=== PATIENT | female | born 1965 | race Caucasian/White ===

== ENCOUNTER 2024-11-01 10:30 | Outpatient (REF) | payer BC, SELFPAY ==
[2024-11-01 11:44] LABS: Hemoglobin 13.3 g/dl (12.0-16.0); Mean Corpuscular HGB Conc 33.3 g/dl (31.0-35.0); Mean Corpuscular Hemoglobin 30.2 pg (27.0-33.0); Mean Corpuscular Volume 90.9 fL (80.0-98.0); Mean Platelet Volume 10.7 fL (9.4-12.3); Platelet Count 215 X10*3/uL (160-400); Red Cell Distribution Width 13.5 % (11.0-16.0); White Blood Count 3.6 X10*3/uL (4.8-10.8)
[2024-11-01 12:31] LABS: Alanine Aminotransferase 34 U/L (0-31); Albumin Level 4.3 g/dL (3.5-5.0); Alkaline Phosphatase 76 U/L (39-117); Anion Gap 10 (12-20); Aspartate Amino Transferase 32 U/L (5-31); Bilirubin Total 0.8 mg/dL (0.0-1.0); Blood Urea Nitrogen 11 mg/dL (9-16); Calcium 9.2 mg/dL (8.4-10.2); Carbon Dioxide 27 mmol/L (22-29); Chloride 108 mmol/L (96-108); Cholesterol 232 mg/dL (<200); Estimated Glomerular Filt Rate > 60; Glucose Random 86 mg/dL (60-115); HDL Cholesterol 72 mg/dL (>40); LDL Cholesterol Calculated 148 mg/dL (<100); Potassium 4.4 mmol/L (3.3-5.1); Sodium 141 mmol/L (135-145); Total Protein 7.4 g/dL (6.5-8.0); Triglycerides 63 mg/dL (<150)
[2024-11-01 12:46] LABS: Vitamin D 25-OH Total 37.1 ng/mL (>30)
--- OUTSIDE RECORDS SUMMARY | 2024-11-01 15:20 | XMS_ITS | Patient Health Record ---
Author Organization [facility] Gaby marielos [place] Address [address] [place] [address] Care Team Providers Care Column Precaster Name Role Phone Tyrone Kim MD Primary Care Provider UnaBabar Coleman Unavailable [phone] Allergies Allergen (clinical drug ingredient) Drug/Non Drug Allergy documented on EMR Reaction Allergy Type Onset Date Status Pseudoephedrine Cold/Allergy increased heart rate Drug Allergy Active Reason For Referral No Information Medications Medication SIG (Take, Route, Frequency, Duration) Notes Start Date End Date Status Erythromycin Unknown Flonase Active Doxycycline Unknown Social History Tobacco Use: Social History Observation Description Date Details (start date - stop date) Never Smoker NA - NA Tobacco Use/Smoking Question Answer Notes Are you a: nonsmoker Additional Findings: Tobacco Non-User Current no n-smoker Alcohol Screen Question Answer Notes Did you have a drink contain ing alcohol in the past year? Yes How often did you have a dri nk containing alcohol in the past year? Monthly or less (1 point) How many drinks did you have on a typical day when you were drinking in the past year? 1 or 2 drinks (0 point) How often did you have 6 or more drinks on one occasion in the past year? Never (0 point) Points 1 Interpretation Negative Tobacco use other than smoking: Question Answer Notes Are you an other tobacco user? No Plan Of Treatment No Information Insurance Providers Payer Name Payer Address Payer Phone Subscriber Number Group Number Insured Name Patient Relationship to Insured Coverage Start Date Coverage End Date [facility] [address] [place] [address] [id number] [place], [place] Self - patient is the insured Medical (General) History Medical History History ICD Code Back,Hip,and Knee pain Chicken pox Rosacea Seasonal allergies
--- OUTSIDE RECORDS SUMMARY | 2024-11-01 15:20 | XMS_ITS | Clinical Summary ---
Author Organization [facility] Address [address] [place] [address] Phone Care Team Providers Care Jboss Architect Name Role Phone Tyrone Kim MD Primary Care Provider [phone]- [phone] Encounters Date Type Department Care Team Description 08/26/2024 Lab Requisition [facility] - Main Lab [address] [place] [address] Naren Ortega MD Encounter for gynecological examination (general) (routine) without abnormal findings from Last 3 Months Medical History Medical History Date Comments Rosacea 09/24/2018 DX:Rosacea Social History Tobacco Use Types Packs/Day Years Used Date Smoking Tobacco: Never Smokeless Tobacco: Never Sex and Gender Information Value Date Recorded Sex Assigned at Female 08/30/2024 1:20 PM EST Gender Identity Female 08/30/2024 1:20 PM EST Sexual Orientation Straight 08/30/2024 1: 20 PM EST Job Start Date Occupation Industry Not on file Not on file Not on file Obstetrics History Plan of Treatment Upcoming Encounters Date Type Department Care Team (Late st Contact Info) Description 01/07/2025 8:00 AM EDT Appointment [facility] [address] [place] [phone] 01/07/2025 8:45 AM EDT Appointment [facility] [address] [place] [address] Health Maintenance Due Date Last Done Comments Zoster Vaccines (1 of 2) 2013 Cholesterol Screening (Lipid Panel) 11/06/2019 Colorectal Cancer Screening: Colonoscopy 11/06/2019 Depression Screening 11/06/2019 HIV Screening 11/06/2019 Hepatitis C Screening 11/06/2019 Social Influencers of Health Screening 11/06/2019 COVID-19 Vaccine ( - season) 2024 Influenza Vaccine (#1) 2024 08/10/2020 Breast Cancer Screening 01/06/2026 01/07/20 24, 01/02/2023, 12/27/2021, Additional history exists Cervical Cancer Screening: Pap Smear 08/25/2027 08/25/2024 DTaP,Tdap,and Td Vaccines (2 - Td or Tdap) 08/30/2029 08/30/2019 RSV Immunization Patients 60+ Years Old (1 - 1-dose 75+ series) 2038 HIB Vaccines Aged Out No longer eligi ble based on patient's age to complete this topic HPV Vaccines Aged Out No longer eligi ble based on patient's age to complete this topic Hepatitis A Vaccines Aged Out No long er eligible based on patient's age to complete this topic Hepatitis B Vaccines Aged Out No long er eligible based on patient's age to complete this topic IPV Vaccines Aged Out No longer eligi ble based on patient's age to complete this topic MMR Vaccines Aged Out No longer eligi ble based on patient's age to complete this topic Meningococcal ACWY Vaccine Aged Out N o longer eligible based on patient's age to complete this topic Pneumococcal Vaccine: Pediatrics (0 to 5 Years) and At-Risk Patients (6 to 64 Years) Aged Out No longer eligible based on patient's age to complete this topic RSV Immunization Patients Under 20 months Aged Out No longer eligible based on patient's age to complete this topic Varicella Vaccines Aged Out No longer eligible based on patient's age to complete this topic Procedures Procedure Name Priority Date/Time Associated Diagnosis Comments PAP SMEAR Routine 08/25/2024 12:00 AM EST Encounter for gynecological examination (general) (routine) without abnormal findings EMELIA SCREENING DIGITAL Routine 01/07/2024 12:01 PM EDT Encounter for screening mammogram for malignant neoplasm of breast from Last 3 Months or Most Recently Relevant to Health Maintenance Results * Pap smear (08/25/2024 12:00 AM EST) Interpretation Negative for intraepithelial lesion or malignancy 08/31/2024 8:28 AM [facility] General Categorization Negative 08/31/2024 8:28 AM [facility] Other Findings Atrophy 08/31/2024 8:28 AM [facility] Specimen Adequacy Satisfactory for evaluation, endocervical/taveras sformation zone component present 08/31/2024 8:28 AM [facility] Pap Methodology Liquid Based Pap Test 08/31/2024 8:28 AM [facility] Disclaimer The Pap test is a screening test which carries an inherent false negative rate. These test results should be correlated with the patient's clinical findings and history. This Pap test was processed using an automated screening system. Technical cytopathology services provided by [facility], at [address] [place] [address] (CLIA # [id number]/Anahi Stovall MD, Dump Worker.) 08/31/2024 8:28 AM [facility] Console Pap Interpretation Reported 08/31/2024 8:28 AM [facility] Brushing/Spatula Cervix uteri structure / Unknown 08/25/2024 08/26/2024 7:56 AM EST Naren Ortega MD LAB CYTOLOGY ORDERAB LES [facility] [address] [place] [address], * EMELIA SCREENING DIGITAL (01/07/2024 12:01 PM EDT) Anatomical Region Laterality Modality Mammography 01/07/2024 10:0 3 AM EDT Narrative 01/07/2024 12:[address] [facility] Diagnostic Imaging Department [address] [place] [address] Patient: ??ELHAM HERRERA ?/Age/Sex: 1965 - 58 - F Unit#: ??[id number] ? Location/Status: ??SPDIMAM/REG CLI ? Mnemonic/Ordering Site: ??DIGSC/SPMAM Ordering Physician: ??NAREN ORTEGA MD [facility] Screening Digital - 01/07/24 - 1023 Report Status:Signed EXAM: [facility] Screening Digital EXAM DATE AND TIME: 01/07/2024 10:24 AM HISTORY: ??Annual screening COMPARISON: ??Multiple exams dating back to 2003 TECHNIQUE: Bilateral digital breast tomosynthesis was performed in the CC and MLO projections. Computer aided detection with Porter + Sail 3D 3.1 was employed. TISSUE DENSITY: b. There are scattered areas of fibroglandular density. FINDINGS: No suspicious masses, grouped microcalcifications, or areas of architectural distortion are seen. The skin and vascularity are unremarkable. IMPRESSION: Stable mammographic appearance of the breasts. ??No evidence of malignancy is seen. A negative mammogram in the presence of a clinically suspicious palpable abnormality does not preclude the possibility of malignancy or alter the indications for biopsy. BI-RADS: ??Category 1: Negative RECOMMENDATION(S): 1: Routine screening mammogram BILATERAL in 1 year. 3341F, 7025F Dictating Physician: ??MILO SHAH MD Electronically Signed by: ??MILO SHAH MD Dic Date/Time: ??01/07/24 1200 Sign date/Time: ??01/07/24 1201 Procedure Note Milo Shah MD - 05/24/2024 [facility] Diagnostic Imaging Department [address] [place] [id number] Patient: ELHAM HERRERA /Age/Sex: 1965 - 58 - F Unit#: [id number] Location/Status: [facility] CLI Mnemonic/Ordering Site: [facility] Ordering Physician: NAREN ORTEGA MD [facility] Screening Digital - 01/07/24 - 1023 Report Status:Signed EXAM: [facility] Screening Digital EXAM DATE AND TIME: 01/07/2024 10:24 AM HISTORY: Annual screening COMPARISON: Multiple exams dating back to 2003 TECHNIQUE: Bilateral digital breast tomosynthesis was performed in the CCand MLO projections. Computer aided detection with iCAD Ph.Creative AI 3D 3.1was employed. TISSUE DENSITY: b. There are scattered areas of fibroglandular density. FINDINGS: No suspicious masses, grouped microcalcifications, or areas ofarchitectural distortion are seen. The skin and vascularity are unremarkable. IMPRESSION: Stable mammographic appearance of the breasts. No evidence of malignancyis seen. A negative mammogram in the presence of a clinically suspicious palpable abnormality does not preclude the possibility of malignancy or alter the indications for biopsy. BI-RADS: Category 1: Negative RECOMMENDATION(S): 1: Routine screening mammogram BILATERAL in 1 year. 3341F, 7019F Dictating Physician: MILO SHAH MD Electronically Signed by: MILO SHAH MD Dic Date/Time: 01/07/24 1200 Sign date/Time: 01/07/24 1201 Naren Ortega MD IMG BI PROCEDURES from Last 3 Months or Most Recently Relevant to Health Maintenance Care Teams Jboss Architect Relationship Specialty Start Date End Date Tyrone Kim MD [address] [place] [phone] PCP - General Internal Medicine 08/17/14
--- OUTSIDE RECORDS SUMMARY | 2024-11-01 15:20 | XMS_ITS | Encounter Summary ---
Author Organization [facility] Address [address] [place] [address] Care Team Providers Care Lead Worker Of Housekeeping And Laundry Name Role Phone Tyrone Kim MD Primary Care Provider +1- [phone] Encounter Details Date Type Department Care Team (Latest Contact Info) Description 08/26/2024 Lab Requisition [facility] - Main Lab [address] [facility] [place] [phone] Naren Ortega MD [address] [facility] [address] [place] [address] Encounter for gynecological examination (general) (routine) without abnormal findings Social History Tobacco Use Types Packs/Day Years Used Date Smoking Tobacco: Never Smokeless Tobacco: Never Sex and Gender Information Value Date Recorded Sex Assigned at Female 08/30/2024 1:20 PM EST Gender Identity Female 08/30/2024 1:20 PM EST Sexual Orientation Straight 08/30/2024 1: 20 PM EST Job Start Date Occupation Industry Not on file Not on file Not on file documented as of this encounter Plan of Treatment Upcoming Encounters Date Type Department Care Team (Late st Contact Info) Description 01/07/2025 8:00 AM EDT Appointment [facility] Bone Density [address] [place] [phone] 01/07/2025 8:45 AM EDT Appointment [facility] [address] [place] [phone] documented as of this encounter Procedures Procedure Name Priority Date/Time Associated Diagnosis Comments PAP SMEAR Routine 08/25/2024 12:00 AM EST Encounter for gynecological examination (general) (routine) without abnormal findings documented in this encounter Results * Pap smear (08/25/2024 12:00 AM EST) Interpretation Negative for intraepithelial lesion or malignancy 08/31/2024 8:28 AM [facility] General Categorization Negative 08/31/2024 8:28 AM EST [facility] Other Findings Atrophy 08/31/2024 8:28 AM [facility] Specimen Adequacy Satisfactory for evaluation, endocervical/taveras sformation zone component present 08/31/2024 8:28 AM [facility] Pap Methodology Liquid Based Pap Test 08/31/2024 8:28 AM [facility] Disclaimer The Pap test is a screening test which carries an inherent false negative rate. These test results should be correlated with the patient's clinical findings and history. This Pap test was processed using an automated screening system. Technical cytopathology services provided by [facility], at [address] [place] [address] (CLIA # [id number]/Anahi Stovall MD, Crew Manager.) 08/31/2024 8:28 AM [facility] Console Pap Interpretation Reported 08/31/2024 8:28 AM [facility] Brushing/Spatula Cervix uteri structure / Unknown 08/25/2024 08/26/2024 7:56 AM EST Naren Ortega MD LAB CYTOLOGY ORDERAB LES [facility] [address] [place] [address], documented in this encounter Visit Diagnoses Diagnosis Encounter for gynecological examination (general) (routine) without abnormal findings documented in this encounter Care Teams Lead Worker Of Housekeeping And Laundry Relationship Specialty Start Date End Date Tyrone Kim MD [address] [place] [phone] PCP - General Internal Medicine 08/17/14 documented as of this encounter
== END 2024-11-01 10:31 | disposition home or self-care (01) ==
LOC: HO.LAB 10:30
DX: Z00.00 Encounter for general adult medical examination without abnormal findings (principal)
CPT/HCPCS: 36415; 80053; 80061; 82306; 85027